=== PATIENT | female | born 1960 | race Caucasian/White ===

== ENCOUNTER → 2022-09-16 | Outpatient (CLI) | payer BC, SELFPAY ==
--- NOTE | 2022-09-16 13:21 | RAD_ITS ---
STUDY: X-RAY - PELVIS AND LEFT HIP REASON FOR EXAM: Female, 62 years old. Hip pain. TECHNIQUE: 3 views of the pelvis and hip. COMPARISON: None. FINDINGS: There is a non-specific bowel gas pattern. Calcified uterine fibroid in the right side of the pelvis. Osteopenia. Normal bilateral iliac wings, sacroiliac joints and visualized sacrum. Normal bilateral superior and inferior pubic rami. Normal pubic symphysis. Normal bilateral ischial tuberosities. Mild arthrosis of both hips. RAD/HIP, UNI W/ Pelvis 2-3 Views IMPRESSION: Osteopenia with mild arthrosis of both hips. No acute abnormality or erosive changes. Electronically Signed: Dangelo Landin, at 15:30 EST ,
--- NOTE | 2022-09-16 13:21 | RAD_ITS ---
STUDY: X-RAY - LUMBAR SPINE REASON FOR EXAM: Female, 62 years old. Coccydynia. TECHNIQUE: 4 view(s) of the lumbar spine were obtained. COMPARISON: None FINDINGS: Osteopenia. Normal lumbar lordosis. There is no substantial scoliosis. There is a normal alignment of the vertebrae. Diffuse facet sclerosis. Diffuse mild intervertebral disc space narrowing most marked at T12-L1, L1-L2, L2-L3 and to the greatest degree L3-L4. Minimal vascular calcification. Calcified uterine fibroid. RAD/L/S Spine Min 4 Views IMPRESSION: Osteopenia with diffuse mild lumbosacral spondylosis. No acute abnormality, evidence of erosive changes/fusion. Electronically Signed: Dangelo Landin, at 15:35 EST ,
--- NOTE | 2022-09-16 13:21 | RAD_ITS ---
STUDY: X-RAY - LEFT KNEE REASON FOR EXAM: Female, 62 years old. Chronic pain. TECHNIQUE: 4 view(s) of the knee. COMPARISON: None. FINDINGS: Osteopenia. Small superior patellar spur. Mild tricompartmental arthrosis, most marked in the patellofemoral compartment. Normal soft tissues. RAD/Knee 4 or More Views IMPRESSION: Osteopenia with superior patellar spur and tricompartmental arthrosis, most marked in the patellofemoral joint. No acute abnormality, chondrocalcinosis or erosive changes. Electronically Signed: Dangelo Landin, at 15:32 EST ,
[2022-09-16 16:51] LABS: Absolute Lymphocyte Count 3.76 X10^3/uL (0.83-4.51); Absolute Neutrophil Count 6.2 X10^3/uL (2.0-7.7); Basophil# 0.05 X10^3/uL; Basophil% 0.4 % (0-1); Eosinophil# 0.38 X10^3/uL; Eosinophils% 3.4 % (0-5); Hematocrit 42.9 % (37-47); Hemoglobin 14.6 g/dL (12.0-15.0); Lymphocyte # 3.76 X10^3/ul (0.83-4.51); Lymphocyte % 33.3 % (19-41); Mean Corpuscular Hgb 29.8 pg (27.0-32.0); Mean Corpuscular Volume 87.6 fL (81-99); Mean Platelet Vol. 9.8 fl (6.2-12.0); Monocyte# 0.89 X10^3/uL; Monocyte% 7.9 % (0-10); NRBC Flagged by Analyzer 0 % (0-5); Neutrophil # 6.19 X10^3/uL (2.7-7.7); Neutrophil % 54.7 % (47-70); Platelet Count 285 K/mm3 (150-450); RBC Distribution Width CV 13.4 % (11.6-14.6); White Blood Count 11.3 K/mm3 (4.4-11.0)
[2022-09-16 16:54] LABS: Erythrocyte Sedimentation Rate 16 mm/hr (0-30)
[2022-09-16 17:38] LABS: CRP 5.11 mg/L (0.0-3.0)
[2022-09-22 08:08] LABS: Anti-Centromere B Ab <0.2 AI (0.0-0.9); Anti-Chromatin <0.2 AI (0.0-0.9); Anti-Jo <0.2 AI (0.0-0.9); Anti-Scleroderma-70 AB <0.2 AI (0.0-0.9); Beef 0.13 kU/L (Class 0/I); Corn <0.10 kU/L (Class 0); Milk (Cow) 0.12 kU/L (Class 0/I); Peanut <0.10 kU/L (Class 0); Pork <0.10 kU/L (Class 0); RNP Ab <0.2 AI (0.0-0.9); SJOGREN'S Anti-SS-A test < 0.2 AI (0.0-0.9); SJOGREN'S Anti-SS-B test < 0.2 AI (0.0-0.9); Smith Ab <0.2 AI (0.0-0.9); Soybean <0.10 kU/L (Class 0); Wheat <0.10 kU/L (Class 0)
[2022-09-22 14:45] LABS: Anti-dsDNA Ab 1 IU/mL (0-9); Chocolate <0.10 kU/L (Class 0)
[2022-09-22 15:08] LABS: Alternaria tenuis 1.03 kU/L (Class II); Ash, White <0.10 kU/L (Class 0); Aspergillus fumigatus <0.10 kU/L (Class 0); Bermuda Grass <0.10 kU/L (Class 0); Birch <0.10 kU/L (Class 0); Black Walnut <0.10 kU/L (Class 0); Cat Hair / Dander,Stand <0.10 kU/L (Class 0); Cedar, Mountain <0.10 kU/L (Class 0); Cladosporium herbarum <0.10 kU/L (Class 0); Cockroach, American <0.10 kU/L (Class 0); Cottonwood <0.10 kU/L (Class 0); D farinae Mite <0.10 kU/L (Class 0); D pteronyssinus <0.10 kU/L (Class 0); Dog Epithelia <0.10 kU/L (Class 0); Elm, American White <0.10 kU/L (Class 0); Immunoglobulin E 122 IU/mL (6-495); Maple/Box Elder <0.10 kU/L (Class 0); Mulberry, White <0.10 kU/L (Class 0); Oak, White <0.10 kU/L (Class 0); Pecan <0.10 kU/L (Class 0); Penicillium Notatum <0.10 kU/L (Class 0); Pigweed, Rough <0.10 kU/L (Class 0); Ragweed, Short/Common <0.10 kU/L (Class 0); Russian Thistle <0.10 kU/L (Class 0); Sheep Sorrel <0.10 kU/L (Class 0); Sycamore, American <0.10 kU/L (Class 0); Timothy Grass <0.10 kU/L (Class 0)
[2022-09-22 16:28] LABS: Mouse Urine <0.10 kU/L (Class 0)
[2022-09-24 15:09] LABS: Angiotensin Convert Enzyme 45 U/L (14-82); Cytoplasmic Ab (C-ANCA) <1:20 titer (Neg:<1:20); Immunoglobulin A 237 mg/dL (87-352); Immunoglobulin E 108 IU/mL (6-495); Immunoglobulin G 1106 mg/dL (586-1602)
[2022-09-24 15:10] LABS: ACHR AB Modulating 15 % (0-45); ACHR Recep AB, Blocking 10 % (0-25); Acetylcholine Receptor Binding < 0.03 nmol/L (0.00-0.24); Immunoglobulin M 94 mg/dL (26-217); Perinuclear Ab (P-ANCA) <1:20 titer (Neg:<1:20)
== END | disposition home or self-care (01) ==
LOC: MTLAB 13:18 → MTRAD 13:20
PROVIDERS: Internal Medicine Gastroenterology
DX: M25.562 Pain in left knee (principal); M53.3 Sacrococcygeal disorders, not elsewhere classified; M25.552 Pain in left hip; R05.9 Cough, unspecified
CPT/HCPCS: 36415; 72110; 73502; 73564; 82164; 82784; 82785; 83519; 84238; 85025; 85652; 86003; 86005; 86140; 86225; 86235; 86256

== ENCOUNTER → 2022-10-14 | Outpatient (CLI) | payer BC, SELFPAY ==
--- NOTE | 2022-10-14 12:34 | CT_ITS ---
STUDY: CT MAXILLOFACIAL SINUSES REASON FOR EXAM: Female, 62 years old. Cough RADIATION DOSAGE (If Supplied By Facility): CTDIvol = ( 33.06 ) mGy, DLP = ( 759.47 ) mGycm TECHNIQUE: The patient was scanned in a multi detector CT scanner. High resolution axial imaging was performed without the administration of intravenous contrast material. Sagittal and coronal images were reconstructed. Individualized dose optimization techniques were used for this CT. COMPARISON: None. FINDINGS: FRONTAL SINUSES: Normal aeration, without mucosal inflammatory disease. ETHMOIDAL SINUSES: Normal aeration, without mucosal inflammatory disease. MAXILLARY SINUSES: Normal aeration, without mucosal inflammatory disease. SPHENOIDAL SINUSES: Normal aeration, without mucosal inflammatory disease. There is patency of the bilateral maxillary infundibuli with normal uncinate processes, ethmoid bullae, and hiatus semilunaris. Normal bilateral middle turbinates. Normal bilateral inferior turbinates. Normal midline nasal septum. There is patency of the bilateral nasal airways. The visualized osseous structures are normal. The visualized bilateral orbital contents are normal. CT/Sinus/Facial Bone IMPRESSION: Normal CT examination of the maxillofacial sinuses. Electronically Signed: Ivan De Santiago MD at 13:49 EST ,
--- NOTE | 2022-10-14 15:08 | ST.MBS ---
Modified Barium Swallow - Patient Information Study Date: 10/14/22 Study Time: 13:00 Direct Billable Minutes: 120 Total Minutes procedure & reportin Diagnosis: COUGH R05.9 Referring Physician: Hernandez Grove Reason for Referral: Objectively assess swallow function, risk for aspiration, and determine recommendations for least restrictive diet textures and compensatory strategies to improve safety of swallow. Medical History: Lillie Tadeo is a 62yo F w/ PMH re: asthma, basal cell carcinoma. candidiasis, chronic cough, depression, GERD, hiatal hernia, hyperlipidemia, hypertension, hypokalemia and urinary incontinence. Referred by Dr. Grove for Modified Barium Swallow Study d/t chronic cough w/ laughter and postprandially which she finds debilitating. Pulmonology seen who feels the cough is related to GERD. Another GI attempted baclofen and this caused her to be sleepy and could not take this. Patient w/ hx of LINX augmentation and hiatal hernia repair in [place] in April 2019, famotidine now being taken as a PRN medication. EGD in September of 2019, April 2020 and January 2021 with dilation to address dysphagia. During January 2021 Cota deployed; LINX noted at GE junction with healthy appearing mucosa; patchy inflammation with edema, erythema, granularity and shallow ulceration of gastric body and antrum. Pathology finding GE junction metaplasia. Cota pH in January 2021 finding abnormal distal esophageal acid exposure with positive symptom association for regurgitation; bipositional reflux not observed. Current Diet Ordered: regular textures / thin liquids Dentition: WNL Mental Status: WNL Respiratory Status: Oxygenating on Room Air - Penetration-Aspiration Scale Penetration-Aspiration Scale: OBJECTIVE ASSESSMENT OF SWALLOW FUNCTION (QUANTITATIVE ? PER TRIAL): PENETRATION / ASPIRATION SCALE (NICOLAS): 1 = does not enter airway 2 = enters airway/above vocal folds/ejected 3 = enters airway/above vocal folds/not ejected 4 = enters airway/contacts vocal folds/ejected 5 = enters airway/contacts vocal folds/not ejected 6 = enters airway/below vocal folds/ejected 7 = enters airway/below vocal folds/not ejected despite effort 8 = enters airway/below vocal folds/no effort VIDEOFLOROSCOPIC SCALE SCORE (NICOLAS): Grade I = aspiration of material that has penetrated into the laryngeal vestibule, intact cough reflex Grade II = aspiration < 10 % of the bolus, intact cough reflex Grade III = aspiration of < 10 % of the bolus, reduced cough reflex or aspiration of > 10 % of the bolus, intact cough reflex Grade IV = aspiration of > 10 % of the bolus, reduced cough reflex - Penetration-Aspiration Scale Score Thin Liquid via teaspoon Result: 1= does not enter airway Thin Liquid via large single sip from cup Result: 1= does not enter airway Comment: large sip w/ 3 swallows [place] Thick Liquid via small single sip from cup Result: 1= does not enter airway Honey Thick Liquid via small single sip from cup Result: 1= does not enter airway Pudding Result: 1= does not enter airway Cookie Result: 1= does not enter airway - Oral Phase Labial Seal: No Labial Escape Tongue Control During Bolus Hold: Escape to lateral buccal cavity/floor of mouth Bolus Preparation/Mastication: Slow prolonged chewing/mashing with complete recollection Bolus Transport/Lingual Motion: Delayed initiation of tongue motion Oral Residue: Trace residue lining oral structures - Pharyngeal Phase Initiation of Pharyngeal Swallow: Bolus head in valleculae Soft Palate Elevation: No bolus between soft palate and pharyngeal wall Laryngeal Elevation: Comp. Superior move thyroid cart w/comp. apprx arytenoid cart-epig pet Anterior Hyoid Excursion: Complete anterior movement Epiglottic Movement: Complete inversion Laryngeal Vestibule Closure at Height of Swallow: Complete; no air/contrast in laryngeal vestibule Pharyngeal Stripping Wave: Present - complete Pharyngoesophageal Segment Opening: Parital distension and partial duration; parital obstruction of flow Tongue Base Retraction: Trace column of contrast between tongue base & post. pharyngeal wall Pharyngeal Residue: Trace residue within or on pharyngeal structures - trace pharyngeal residue within the valleculae w/ NTL - Esophageal Phase Esophageal Clearance: Esophageal retention w/ retrograde flow below pharyngoesophageal seg. - Diagnosis/Impression Diagnosis: swallow function grossly WNL Impression: The patient presents with oropharyngeal swallow function grossly WNL. The patient demonstrates good airway closure throughout the study. No penetration or aspiration observed across all consistencies. Prominent cricopharyngeal bar located at the C-5 level w/ minimal impact noted on pharyngoesophageal segment opening or pharyngeal motility. Mild retention of pudding and cookie in mid esophagus. Mild to moderate esophageal retention of barium tablet w/ retrograde flow of liquid chaser in upper esophagus. Thin liquid wash was used to attempt to clear retention of contrast w/ minimal improvement. - Recommendations Diet: Regular Textures, Thin Liquids Compensatory Strategies: Small Bites, Small Sips, Slow Rate, Alternate bites/solids and sips/liquids, Remain sitting upright for 30 minutes after PO intake Recommend Repeat Modified Barium Swallow: No Need for Skilled Speech Therapy Services: No Recommended Referrals: GI Consult - follow w/ Friend Education Completed: 1. Described result of evaluation., 2. Pt understands evaluation & agrees with goals and treatment plan. - Status Active ST Patient: Active - Contact Information [facility] Speech Therapy:: Cirea Krueger M.A. [facility] Speech-Language Pathologist [facility] [address] [place] [address] [email or web address] [phone] 10/14/22 15:20
== END | disposition home or self-care (01) ==
LOC: RAD 12:33
PROVIDERS: PCP Family Medicine; Referring Provider Internal Medicine Gastroenterology; Visit Provider Internal Medicine Gastroenterology
DX: R05.9 Cough, unspecified (principal)
CPT/HCPCS: 70486; 74230; 92611

== ENCOUNTER → 2022-12-09 | Outpatient (CLI) | payer BC, SELFPAY ==
[2022-12-09 16:44] LABS: Erythrocyte Sedimentation Rate 2 mm/hr (0-30)
[2022-12-09 17:27] LABS: CRP 3.58 mg/L (0.0-3.0)
== END | disposition home or self-care (01) ==
LOC: LAB 15:25
PROVIDERS: PCP Nurse Practitioner Family; Visit Provider Internal Medicine Gastroenterology
DX: R05.9 Cough, unspecified (principal)
CPT/HCPCS: 36415; 85652; 86140

== ENCOUNTER 2023-02-24 05:52 | Day surgery (SDC) | payer BC, SELFPAY ==
[2023-02-24 06:48] VITALS: BP 124/62; PULSE 66; RESP 18; TEMP 36.6; O2SAT 95; BMI 35.2
[2023-02-24] MEDS: Lactated Ringers 1,000 ML 15 ML IV (06:54)
--- NOTE | 2023-02-24 07:15 | HP.PCM_ITS ---
History and Physical Date of Admission: 02/24/23 62 F who presents to the office today for Follow up. 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 Colonoscopy 2017?records unavailable. Manometry 02.21.19?noted hernia with normal findings. EGD 02.21.19?records unavailable. Omeprazole taken prior to LINX and was very effective, however cough started while taking this. LINX augmentation and hiatal hernia repair in [place] 05.19.19. Famotidine now being taken as a PRN medication. EGD 10.03.19?with dilation to address dysphagia. Manometry 03.06.20?records unavailable. EGD 05.07.20?records unavailable. EGD 01.28.21?Cota deployed; LINX noted at GE junction with healthy appearing mucosa; patchy inflammation with edema, erythema, granularity and shallow ulceration of gastric body and antrum. Pathology finding GE junction metaplasia. H.Pylori negative. Cota pH?finding abnormal distal esophageal acid exposure with positive symptom association for regurgitation; bipositional reflux not observed. *[facility] Established clinic 09.16.22 with referral from PCP. She has been having a difficulty with chronic cough with laughter and postprandially which she finds to be debilitating. Pulmonology seen who feels the cough is related to GERD. Another GI attempted baclofen and this caused her to be sleepy and could not take this. [employer] seen for asthma. Biochemical workup ?CBC, ESR, allergen, JIMENEZ, acetylcholine receptor binding, ACHR blocking, ACHR modulating, RYAN comp, ANCA, GAME without pertinent abnormality.? CRP H5.11? RAST equivocal/low egg 0.10, cow?s milk 0.12, Beef 0.13 CT facial/sinus 10.14.22?without acute/chronic abnormality. ?Barium Swallow 10.14.22?WNL, no recommendations. OV 12.09.22 main concern is the cough with mucous. Heartburn is somewhat worse, particularly with pill intake at night (calcium, atorvastatin, montekulast, and sertraline) and sometimes episodically that self resolves. ROS Const Constitutional: No anorexia, fatigue, fever(s), weight change or sleep problems Eyes Eyes: No change in vision ENT ENT: No abnormal hearing, difficulty swallowing, mouth lesions, tongue swelling or throat swelling Resp Respiratory: No cough or shortness of breath Cardio Cardiology: No chest pain at rest, chest pain with exertion, shortness of breath or dyspnea on exertion Gastro GI: No difficulty swallowing Genitourinary-Female: No difficulty urinating or burning urination Musc Musculoskeletal: No joint pain, joint swelling, muscle weakness or decreased muscle mass Skin Skin: No hair loss in leg, yellowing of the eye, itchy eyes, rash, skin ulcer or skin swelling Neuro Neurology: No abnormal hearing, abnormal movements, confusion, unsteady gait/balance or memory loss Psych Psychiatric: No anxiety, No confusion and No memory loss Endo Endocrine: No fatigue or weight change Aller/Imm Allergy/Immunologic: No itchy eyes, throat swelling or tongue swelling Sage/Lymp Hematologic/Lymphatic: No easy bleeding, easy bruising or enlarged lymph nodes Exam Const General: cooperative and comfortable Nutritional Appearance: average body habitus and well nourished HENMT Head: normal to inspection Ears: hearing grossly normal bilaterally Nose: external nose normal Face and sinus: normal facial exam Mouth: oral mucosae normal Throat: posterior oropharynx normal Eyes General: appearance normal, both eyes and all related structures Neck Neck: normal visual inspection Chest Chest palpation & inspection: normal inspection of the chest and normal palpation of entire chest wall Resp Effort & Inspection: normal respiratory effort Auscultation: Bilateral: Clear to Auscultation Cardio Palpation: normal PMI Rate: regular rate Rhythm: regular rhythm GI Inspection: normal to inspection Auscultation: normal bowel sounds Percussion: normal to percussion Palpation: no hepatosplenomegaly Skin General: no rashes or lesions noted Neuro General: patient alert Extrem General: normal to inspection Psych Affect: normal affect Quality Reporting Tobacco Screening ([facility]) Smoking Status: Never smoker Assessment and Plan Assessment and Plan (1) Cough: ?Status:?Acute ?Plan: .? I think she could have asthma variant cough..? At this time she denies any chest pain or shortness of breath.? We will perform biochemical testing to see if she has any signs of Sjogren's or scleroderma biochemically.? She should also undergo an upper endoscopy to see if there is any signs of eosinophilic esophagitis.? We will undergo food allergy testing to see if there is an allergic component.? She underwent a in the esophagus. X-ray of the sinuses did not show any signs of nasal polyps or inflammation.? I will put her fluticasone spray 1 8 is not she will twice daily, low-dose baby aspirin, prednisone and lansoprazole. (2) Gastroesophageal reflux disease: ?Plan: She should undergo an upper endoscopy to evaluate her upper upper GI tract for gastroesophageal reflux disease.? She does not feel any heartburn but she was told that she does have reflux disease and is contributing to her cough.? She should undergo a Cota test where she undergoes an upper endoscopy ? ? ? Orders: Orders CRP Today R05.9 - Cough, unspecified ? Erythrocyte Sed Rate Today R05.9 - Cough, unspecified ? Medications: New prednisone 20 mg? PO DAILY 7 tabs 1RF ? ? lidocaine HCl 2% (Lidocaine Viscous) 1 applic? mucous membrane TID PRN 600 mL 3RF pain ? ? lansoprazole 30 mg? PO DAILY 30 tabs 2RF ? ? Coding Level of Care Code Off vis,est,level 3 Diagnoses Cough? R05.9 Gastroesophageal reflux disease? K21.9 I have examined the patient and the H&P has been reviewed. There are no clinical changes since date of exam.
--- NOTE | 2023-02-24 07:15 | EGD_PTH ---
PATIENT: DEQUAN ROSARIO LOC: [facility] U#:[id number] AGE/SX: 62/F ROOM: RE02/24/[address]: Dr. Hernandez Grove DO : 1960 BED: DIS: 02/24/2023 SPEC #: [id number] RECD: 02/24/23 10:50 STATUS: BRYAN GARY #: [id number] NHAN: 02/24/23 07:[address]: Hernandez Grove DEPT: SURGICAL PATHOLOGY RECD BY: Binta Vasquez ENTERED: 02/24/23 11:30 SP TYPE: EGD BIOPSY OTHR DR: DEVON ZAPATA, WELT DRAWERTrentC Tissues: A - Duodenum, NOS B - Esophagus, NOS Procedures: Special Stain Group II Surgery Specimen Level IV Alcian Blue/PAS (control) HEADER OPERATION: EGD ([facility]), PH probe, biopsy PRE-OP DIAGNOSIS: Cough, GERD TISSUE SUBMITTED: A ? Duodenum biopsy, B ? Distal esophagus biopsy MICROSCOPIC DIAGNOSIS A. Duodenum, biopsy: Fragments of duodenal mucosa, no pathologic diagnosis. B. Distal esophagus, biopsy: Fragments of gastroesophageal mucosa with chronic inflammation. Intestinal metaplasia (goblet cell metaplasia) not identified. See comment. NEVILLE:jacques 02/25/2023 COMMENT B. Alcian blue/PAS stain with matched control is used in the evaluation of the specimen. MICROSCOPIC DESCRIPTION Slides are reviewed. GROSS DESCRIPTION A - Received in fixative is one container labeled with the patient's name and designated biopsy duodenum. The specimen consists of two irregular fragments of light jimenez soft tissue that in aggregate measure 0.8 x 0.3 x 0.1 cm. The specimen is totally submitted in one cassette. B - Received in fixative is one container labeled with the patient's name and designated biopsy distal esophagus. The specimen consists of multiple irregular fragments of light jimenez soft tissue that in aggregate measure 0.8 x 0.5 x 0.1 cm. The specimen is totally submitted in one cassette. / NEVILLE:jacques 02/24/2023 TC:3 CPT: 94498 x2, [id number]
[2023-02-24 07:41] VITALS: BP 101/67; BP 124/62; PULSE 98; RESP 20; TEMP 36.1; O2SAT 98
--- NOTE | 2023-02-24 07:42 | OP.CCLET_ITS ---
02/24/2023 Franklin Barry Re : Upper GI endoscopy procedure for Lillie Buckr Peng This procedure was performed on Friday, February 24, 2023. My impressions and recommendations are as follows: Impressions : - Z-line irregular, 37 cm from the incisors. Biopsied. - Friable duodenal mucosa. Biopsied. Recommendations : - Discharge patient to home. - Resume previous diet. - Continue present medications. - Await pathology results. My findings are described in the full procedure note, which is enclosed. If I can be of further assistance, please feel free to contact me at . Sincerely, Hernandez Grove, 02/24/2023 7:42:03 AM This report has been signed electronically.
--- NOTE | 2023-02-24 07:42 | OP.EGD_ITS ---
Patient Name: Lillie Tadeo Procedure Date: 02/24/2023 7:10 AM Date of : 1960 Age: 62 Procedure: Upper GI endoscopy Indications: Failure to respond to medical treatment Providers: Hernandez Grove DO Medicines: Monitored Anesthesia Care Patient Profile: This is a 62 year old female. Refer to note in patient chart for documentation of history and physical. Patient has symptoms of chronic cough. Complications: No immediate complications. Procedure: Pre-Anesthesia Assessment: - Prior to the procedure, a History and Physical was performed, and patient medications and allergies were reviewed. The risks and benefits of the procedure and the sedation options and risks were discussed with the patient. All questions were answered and informed consent was obtained. Patient identification and proposed procedure were verified by the physician. Mental Status Examination: normal. Prophylactic Antibiotics: The patient does not require prophylactic antibiotics. Prior Anticoagulants: The patient has taken no previous anticoagulant or antiplatelet agents. After reviewing the risks and benefits, the patient was deemed in satisfactory condition to undergo the procedure. The anesthesia plan was to use monitored anesthesia care (MAC). Immediately prior to administration of medications, the patient was re-assessed for adequacy to receive sedatives. The heart rate, respiratory rate, oxygen saturations, blood pressure, adequacy of pulmonary ventilation, and response to care were monitored throughout the procedure. The physical status of the patient was re-assessed after the procedure. After obtaining informed consent, the endoscope was passed under direct vision. Throughout the procedure, the patient's blood pressure, pulse, and oxygen saturations were monitored continuously. The gastroscope was introduced through the mouth, and advanced to the second part of duodenum. The upper GI endoscopy was accomplished without difficulty. The patient tolerated the procedure well. Scope In: 7:24:30 AM Scope Out: 7:32:44 AM Total Procedure Duration Time 0 hours 8 minutes 14 seconds Findings: The Z-line was irregular and was found 37 cm from the incisors. Biopsies were taken with a cold forceps for histology. Verification of patient identification for the specimen was done. Estimated blood loss was minimal. The GONSALVES capsule with delivery system was introduced through the mouth and advanced into the esophagus, such that the GONSALVES pH capsule was positioned 37 cm from the incisors, which was 6 cm proximal to the GE junction. Suction was applied to the well of the GONSALVES pH capsule to suck in the adjacent mucosa of the esophagus using the external vacuum pump set at a minimum vacuum pressure of 550 mmHg for 30 seconds. The GONSALVES pH capsule was then deployed by depressing the plunger on top of the handle to advance the locking pin into the mucosa, thereby attaching the capsule to the esophagus. The plunger was then rotated a quarter turn clockwise to release the capsule from the delivery system. The delivery system was then withdrawn. Endoscopy was utilized for probe placement and diagnostic evaluation. The cardia and gastric fundus were normal on retroflexion. No other significant abnormalities were identified in a careful examination of the stomach. Patchy mildly friable mucosa without active bleeding was found in the duodenal bulb and in the first portion of the duodenum. Biopsies were taken with a cold forceps for histology. Verification of patient identification for the specimen was done. Estimated blood loss was minimal. Clear fluid was found in the stomach. Fluid aspiration was performed through the scope suction channel. The amount of fluid collected was 100 mL. The fluid was clear. Verification of patient identification for the specimen was done. Estimated blood loss was minimal. Impression: - Z-line irregular, 37 cm from the incisors. Biopsied. - Friable duodenal mucosa. Biopsied. Recommendation: - Discharge patient to home. - Resume previous diet. - Continue present medications. - Await pathology results. Procedure Code(s): --- Professional --- 25804, Esophagogastroduodenoscopy, flexible, transoral; with biopsy, single or multiple CPT copyright 2017 [employer]. All rights reserved. The codes documented in this report are preliminary and upon valve setter review may be revised to meet current compliance requirements. Hernandez Grove DO 02/24/2023 7:42:03 AM This report has been signed electronically. Number of Addenda: 0 Note Initiated On: 02/24/2023 7:10 AM
[2023-02-24 07:46] VITALS: BP 100/44; BP 124/62; PULSE 85; RESP 22; O2SAT 96
[2023-02-24 07:50] VITALS: BP 111/84; BP 124/62; PULSE 84; RESP 20; O2SAT 94
[2023-02-24 07:55] VITALS: BP 119/67; BP 124/62; PULSE 73; RESP 20; TEMP 36.2; O2SAT 93
[2023-02-24 08:20] VITALS: BP 124/62
--- NOTE | 2023-02-24 08:22 | NURSING ---
Pt has petechia on face around eyes after coughing after procedure, Dr Gipson went in to see pt to evaluate after procedure. Pt denies any c/o, states she coughs harshly at times at home after eating or with laughing. VSS. Plan is to d/c pt when criteria met.
== END 2023-02-24 08:40 | disposition home or self-care (01) ==
LOC: EN 05:54 → AC 05:55
PROVIDERS: PCP Nurse Practitioner Family; Referring Provider Nurse Practitioner Family; Visit Provider Internal Medicine Gastroenterology
PROC: 0DJ08ZZ Inspection of Upper Intestinal Tract, Via Natural or Artificial Opening Endoscopic (ICD-10-PCS; CPT 43235; principal; 2023-02-24 07:10)
DX: K21.9 Gastro-esophageal reflux disease without esophagitis (principal); R05.9 Cough, unspecified
CPT/HCPCS: 43239; 88305; 88313; J7120; J2405

== ENCOUNTER → 2023-06-02 | Outpatient (CLI) | payer MEDICARE, OTHER, SELFPAY ==
--- NOTE | 2023-06-02 10:14 | NM_ITS ---
CLINICAL: 62-year-old female with history of retained food contents. SEMI-SOLID PHASE 99m Tc SULFUR COLLOID GASTRIC EMPTYING STUDY COMPARISON: None available FINDINGS: The patient was administered 1.1 mCi of 99m Tc sulfur colloid mixed with oatmeal and consumed per os. Image acquisitions in the anterior-posterior projections were obtained for 60 minutes. There is prompt visualization of the stomach. There is no gastroesophageal reflux identified. The T ? linear fit was calculated to be 59.73 minutes, (Normal: 12-56 minutes). NM/Gastric Emptying Study IMPRESSION: 1. ABNORMAL 99m Tc sulfur colloid semi-solid phase (oatmeal) gastric emptying imaging examination. A. There is mildly abnormal semi-solid phase gastric emptying compared to normal controls with maintained first order kinetics throughout all components of the examination. (Chintan et al, J Nucl Med Tech 38: 186, 2010). Electronically Signed: Jesus Blanco, at 22:16 EDT ,
== END | disposition home or self-care (01) ==
PROVIDERS: PCP Nurse Practitioner Family; Referring Provider Internal Medicine Gastroenterology; Visit Provider Internal Medicine Gastroenterology
DX: R05.9 Cough, unspecified (principal)
CPT/HCPCS: 78264; A9541